=== PATIENT | female | born 1960 | race Caucasian/White ===

== ENCOUNTER 2018-08-01 09:04 | Day surgery (SDC) | payer MEDICAID ==
[~2018-08-01] VITALS: Ht 167.6 cm; Wt 95.0 kg
[2018-08-01] MEDS ORDERED: HEPARIN 1,000 UNITS/ML, 10ML ONE (09:55)
[2018-08-01] MEDS ORDERED: VERAPAMIL 2.5 MG/ML, 2ML ONE (09:55)
[2018-08-01] MEDS ORDERED: MIDAZOLAM 1 MG/ML, 2ML ONE (09:55)
[2018-08-01] MEDS ORDERED: NITROGLYCERIN 5 MG/ML, 10ML ONE (09:55)
[2018-08-01] MEDS ORDERED: FENTANYL PF 100 MCG/2ML ONE (09:55)
[2018-08-01] MEDS ORDERED: LIDOCAINE-MPF 1%, 5ML ONE (09:56)
[2018-08-01 09:57] VITALS: BP 10/55
[2018-08-01] MEDS ORDERED: LIRA0.6P2 SC (10:04)
[2018-08-01] MEDS ORDERED: INSU300I3 SC (10:06)
[2018-08-01] MEDS ORDERED: LISI-170 PO (10:07)
[2018-08-01] MEDS ORDERED: AMIT50TA PO (10:07)
[2018-08-01] MEDS ORDERED: FENO160T PO (10:08)
[2018-08-01] MEDS ORDERED: ALLO300T PO (10:08)
[2018-08-01] MEDS ORDERED: ASPI-496 PO (10:09)
[2018-08-01] MEDS ORDERED: POTA10TA11 PO (10:11)
[2018-08-01] MEDS ORDERED: METF10007 PO (10:12)
[2018-08-01] MEDS ORDERED: FURO20TA3 PO (10:12)
[2018-08-01] MEDS ORDERED: RANI150T4 PO (10:13)
[2018-08-01] MEDS ORDERED: LOVA40TA2 PO (10:13)
[2018-08-01] MEDS ORDERED: DILT360C26 PO (10:14)
[2018-08-01] MEDS ORDERED: GABA800T5 PO (10:16)
[2018-08-01] MEDS ORDERED: BUPR150T13 PO (10:17)
[2018-08-01] MEDS ORDERED: METO50TA82 PO (10:18)
[2018-08-01] MEDS ORDERED: TIOT4MIS3 INH (10:20)
[2018-08-01] MEDS ORDERED: DIPHENHYDRAMINE 50 MG/ML, 1ML ONE (10:42)
[2018-08-01] MEDS ORDERED: DIPHENHYDRAMINE 50 MG/ML, 1ML IVPush ONE (11:00)
[2018-08-01] MEDS ORDERED: SODIUM CHLORIDE 0.9% 1,000 ML IV SCH (11:41)
== END 2018-08-01 13:58 | disposition home or self-care (01) ==
LOC: CACL 09:04
PROVIDERS: ATTEND Internal Medicine Cardiovascular Disease
DX: I25.10 Atherosclerotic heart disease of native coronary artery without angina pectoris (principal); I27.0 Primary pulmonary hypertension; E78.5 Hyperlipidemia, unspecified; E11.9 Type 2 diabetes mellitus without complications; J44.9 Chronic obstructive pulmonary disease, unspecified; F17.210 Nicotine dependence, cigarettes, uncomplicated; Z79.82 Long term (current) use of aspirin; Z79.84 Long term (current) use of oral hypoglycemic drugs; Z79.899 Other long term (current) drug therapy
CPT/HCPCS: 93460; 99156; 99157; C1769; C1894; J1200; J1644; J2250; J3010; Q9967